=== PATIENT | female | born 1950 | race Caucasian/White ===

== ENCOUNTER 2017-02-20 11:08 | Emergency (ER) | payer MEDICARE, MEDICAID ==
[~2017-02-20] VITALS: Ht 167.6 cm; Wt 78.9 kg
--- NOTE | 2017-02-20 11:33 | Emergency Room Report ---
History of Present Illness General Chief Complaint: Multiple Trauma/Fall Source: Patient Present Illness HPI Patient is 66-year-old female who presented with bilateral wrist pain after fall. Patient states she fell onto both wrists while falling backward. She reported having increased pain to her wrists bilaterally. She denies any other locations of severe pain at this time. Allergies: Coded Allergies: No Known Allergies (Unverified , 02/20/17) Patient History Past Medical History: see triage record Reviewed Nursing Documentation: PMH: Agreed, PSxH: Agreed Nursing Documentation-PMH Past Medical History: No History, Except For Hx Hypertension: Yes Review of Systems All Other Systems: negative except mentioned in HPI Physical Exam Vital Signs Date Time Temp Pulse Resp B/P Pulse Ox O2 Delivery O2 Flow Rate FiO2 02/20/17 11:17 98.1 66 18 163/85 99 Room Air General Appearance: well appearing, no apparent distress, alert, GCS 15 Head: normocephalic, atraumatic ENT: hearing grossly normal, normal voice Neck: full range of motion, supple Respiratory: no respiratory distress, speaking full sentences Gastrointestinal: normal inspection Musculoskeletal: no calf tenderness, swelling - bilateral wrist swelling no deformity Neurologic: normal inspection, alert, oriented x3, responsive, normal gait Psychiatric: mood/affect normal Skin: no rash Medical Decision Making Diagnostic Impression: Primary Impression: Fall Additional Impression: Wrist fracture, left ER Course Patient presented for bilateral wrist pain. Differential diagnosis included was not limited to sprain, fracture, dislocation and among others. X-ray imaging both wrists was ordered to the patient's locations of pain.X-ray imaging read by radiologist showed fracture of the left wrist. A right wrist showed no evident fracture. The patient is placed in splints bilaterally to the patient's swelling of her right wrist. The patient was advised to followup with orthopedics for further evaluation and treatment. The patient is advised to follow up with primary care doctor in 1-2 days. Patient is advised to return if any worsening condition or if any changes in status that are concerning. Other X-Ray Diagnostic Results Other X-Ray Diagnostic Results : EP Interpretation: Yes Findings: no fractures, no dislocation, no soft tissue swelling, other - Impression: Negative examination of the right wrist. Number of Views: 3 Last Vital Signs Date Time Temp Pulse Resp B/P Pulse Ox O2 Delivery O2 Flow Rate FiO2 02/20/17 11:17 98.1 66 18 163/85 99 Room Air Status: improved Disposition: HOME, SELF-CARE Condition: Stable Scripts Hydrocodone Bit/Acetaminophen 5-325* (NORCO 5-325*) 1 Each Tablet 1 TAB ORAL Q6H Y for For Pain, #20 TAB 0 Refills Prov: Misha Giraldo 02/20/17 Ibuprofen* (MOTRIN*) 600 Mg Tablet 600 MG ORAL Q8H Y for For Pain, #30 TAB 0 Refills Prov: Misha Giraldo 02/20/17 Misha Giraldo February 20, 2017 11:33
[2017-02-20 12:15] VITALS: BP 154/84
[2017-02-20] MEDS ORDERED: NORCO 5-325 TA1 EACH ORAL (13:02)
[2017-02-20] MEDS ORDERED: IBUPROFEN600 MG ORAL (13:02)
[2017-02-20 13:17] VITALS: BP 148/56
--- NOTE | 2017-02-20 14:05 | Diagnostic Imaging Report ---
Indication: Pain Findings: 3 views of the right wrist were obtained. No acute fractures, malalignment, erosions or periostitis are identified. Bone mineralization is within normal limits. Soft tissues are unremarkable. Impression: Negative examination of the right wrist.
--- NOTE | 2017-02-20 14:07 | Diagnostic Imaging Report ---
Indication: Pain Findings: 3 views of the left wrist were obtained. There is an acute comminuted fracture of the dorsal distal radius with part of the fracture line extending into the radiolunate joint. Alignment is well maintained. Soft tissue swelling is present. Impression: Acute, intra-articular fracture of the distal radius
== END 2017-02-20 13:20 | disposition home or self-care (01) ==
LOC: EMR 11:48
DX: S62.102A Fracture of unspecified carpal bone, left wrist, initial encounter for closed fracture (principal); M25.531 Pain in right wrist; W19.XXXA Unspecified fall, initial encounter; Y93.9 Activity, unspecified; Y92.9 Unspecified place or not applicable; I10 Essential (primary) hypertension
CPT/HCPCS: 99284